=== PATIENT | female | born 1995 | race American Indian/Alaskan Native ===

== ENCOUNTER 2022-07-18 10:20 | Emergency (ER) | payer SELFPAY ==
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
[2022-07-18] MEDS ORDERED: ACETAMINOPHEN 500 MG TAB PO ONE (12:12)
[2022-07-18] MEDS ORDERED: predniSONE 20 MG TAB PO ONE (12:21)
[2022-07-18] MEDS ORDERED: CYCLOBENZAPRINE 10 MG TAB PO ONE (12:21)
[2022-07-18] MEDS ORDERED: HYDROcodone/ACETAMINOPHEN 5-325 MG TAB PO ONE (12:21)
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
[2022-07-18 13:35] VITALS: BP 133/88
== END 2022-07-18 13:38 | disposition home or self-care (01) ==
LOC: ED 10:20
DX: M25.512 Pain in left shoulder (principal); M79.18 Myalgia, other site; Z79.899 Other long term (current) drug therapy; V87.7XXA Person injured in collision between other specified motor vehicles (traffic), initial encounter; Y93.89 Activity, other specified; Y92.488 Other paved roadways as the place of occurrence of the external cause; Y99.8 Other external cause status
CPT/HCPCS: 99283